=== PATIENT | female | born 1985 | race African-American/Black ===

== ENCOUNTER 2024-10-03 00:57 | Emergency (ER) | payer SELFPAY ==
[2024-10-03] MEDS ORDERED: methylPREDNISolone Sod Succ/PF 125 MG/2 ML VIAL ONE (01:16)
[2024-10-03] MEDS ORDERED: Famotidine/PF 20 mg/2ml Vial ONE (01:16)
[2024-10-03] MEDS ORDERED: diphenhydrAMINE 50 MG/ML VIAL ONE (01:16)
== END 2024-10-03 02:40 | disposition home or self-care (01) ==
LOC: ERS 00:57
DX: L50.0 Allergic urticaria (principal); I10 Essential (primary) hypertension; Z55.6 Problems related to health literacy; Z79.899 Other long term (current) drug therapy
CPT/HCPCS: 93005; 96374; 96375; J1200; J2919; J3490